=== PATIENT | male | born 1945 | race Caucasian/White ===

== ENCOUNTER 2017-09-19 11:28 | Day surgery (SDC) | payer OTHER ==
[~2017-09-19] VITALS: Ht 180.3 cm; Wt 69.7 kg
[~2017-09-19 11:28] MED LIST: ASPI81 PO; CART120C2; CART180C4 PO; EZET10 PO; OMEP20CA5 PO; PERC7.5T13 PO; RIVA15 PO
[2017-09-19 12:00] VITALS: BP 145/82; PULSE 34; RESP 16; TEMP 98.4; O2SAT 100
[2017-09-19] MEDS ORDERED: OMEP40CA2 PO (12:10)
[2017-09-19] MEDS ORDERED: ASPI-516 CHEW (12:10)
[2017-09-19] MEDS ORDERED: CARD180C5 PO (12:10)
[2017-09-19] MEDS ORDERED: FURO40TA PO (12:10)
[2017-09-19] MEDS ORDERED: OXYC1TAB35 (12:10)
[2017-09-19] MEDS ORDERED: DIGO0.25 PO (12:10)
[2017-09-19 12:30] LABS: AUTOMATED NEUTROPHIL # 4.5 TH/MM3 (1.8-7.7); BASOPHIL # 0.1 TH/MM3 (0-0.2); BASOPHIL % 0.9 % (0.0-2.0); EOSINOPHIL # 0.3 TH/MM3 (0-0.4); EOSINOPHIL % 3.8 % (0.0-4.0); HEMATOCRIT 44.2 % (39.0-51.0); HEMOGLOBIN 15.3 GM/DL (13.0-17.0); LYMPH % 29.9 % (9.0-44.0); LYMPHOCYTE # 2.5 TH/MM3 (1.0-4.8); MEAN CELL VOLUME 92.7 FL (80.0-100.0); MEAN CORPUSCULAR HEMOGLOBIN 32.1 PG (27.0-34.0); MEAN CORPUSCULAR HGB CONC 34.6 % (32.0-36.0); MEAN PLATELET VOLUME 8.3 FL (7.0-11.0); MONOCYTE # 0.9 TH/MM3 (0-0.9); NEUT % 54.4 % (16.0-70.0); PLATELET COUNT 219 TH/MM3 (150-450); RED BLOOD COUNT 4.77 MIL/MM3 (4.50-5.90); RED CELL DISTRIBUTION WIDTH 14.7 % (11.6-17.2); WHITE BLOOD COUNT 8.2 TH/MM3 (4.0-11.0)
[2017-09-19] MEDS ORDERED: ceFAZolin INJ 1,000 MG VIAL ONE (12:36)
[2017-09-19] MEDS ORDERED: LIDOCAINE HCL 2% 50 ML VIAL ONE (12:36)
[2017-09-19] MEDS ORDERED: VANCOMYCIN 500 MG VIAL ONE (12:36)
[2017-09-19] MEDS ORDERED: VANCOMYCIN HCL 1000 MG VIAL ONE (12:36)
[2017-09-19 12:39] LABS: PROTHROMBIN TIME - PATIENT 10.3 SEC (9.8-11.6)
[2017-09-19 12:58] LABS: BICARBONATE 30.6 MEQ/L (21.0-32.0); CALCIUM 9.1 MG/DL (8.5-10.1); CREATININE 1.26 MG/DL (0.60-1.30)
[2017-09-19] MEDS ORDERED: MIDAZOLAM HCL 2 MG/2 ML VIAL ONE (12:59)
[2017-09-19] MEDS ORDERED: LEVA500T33 PO (13:33)
[2017-09-19] MEDS ORDERED: ACETAMINOPHEN 325 MG TAB PO PRN (13:45)
--- NOTE | 2017-09-19 15:31 | CATHPROC ---
Patient Name: LUIS MANUEL BOLES Study #: [id number] Initial MD: Christophe Temple Date of : 1945 Study Date: 09/19/2017 Cardiac Catheterization Report 09/19/2017 3:31:38 PM Financial #: [id number] 1 of 9 Patient Name: LUIS MANUEL BOLES Study #: [id number] Initial MD: Christophe Temple Date of : 1945 Study Date: 09/19/2017 Entire Case Report Patient Information Patient Name LUIS MANUEL BOLES Date of 1945 Age 72 years Financial # [id number] Gender M AlternateID Lab Number 6 Room Number DC09 Height (in) 71.0 Height (cm) 180.3 BSA 1.89 Weight (lbs) 153.3 Weight (kg) 69.7 Patient Address/Phone Number Home Address [facility] Home Phone Number [address] [facility] [address] Study Information Study Number Admission Scheduled Start Study Start [id number] Sep 19 2017 11:28AM 09/19/2017 Sep 19 2017 12:27PM [place] [facility] Cardiac Pacer/ICD Admit Source Facility Department Other [facility] Machine Operator Physician and Clinical Staff Initial Christophe Vargas Construction Services Technician Fernando Corbin,RN Other Ifeoma Atkinson,PEREZ Recorder Brianne Wilkins,RT(R) TECH2 Scrub Regi De León,PORTAINER OPERATOR TECH2 X-Ray cathlab, cathlab 09/19/2017 3:31:38 PM Financial #: [id number] 2 of 9 Patient Name: LUIS MANUEL BOLES Study #: [id number] Initial MD: Christophe Temple Date of : 1945 Study Date: 09/19/2017 Equipment Time Semi Conductor Assembler Description Size Mfg Part Number Used/Scraped 13:19 BIOTRONIK PACEMAKER, ELUNA 8 DR-T DDDR [id number] Used [id number] 12:28 MEDLINE INDUSTRIES SUTURE, STRIP PLUS 1/2" * Used *[id number] 12:28 MEDLINE PACER ADHESIVE, MASTISOL 2/3CC 2/3CC 0523-48 Used 12:28 MEDLINE PACER PAIZ, LIMB * 2530 *[id number] Used [id number] 12:28 MEDLINE PACER PACK, PACER CUSTOM * Used *[id number] 12:28 MEDLINE PACER PEN, SKIN DUAL W/ RULER * Used *[id number] 12:59 Needle Sponge Count 2 22 Used 12:58 Needle Sponge Count 2 2 Used 12:59 Needle Sponge Count 25 1 Used [id number] *[id number] SUTURE, 3-0 VICRYL [SH] ([id number]) SUTURE, 3-0 VICRYL [SH] ([id number]) SUTURE, 4-0 MONOCRYL [PS2] (Y496G) [id number] 12:28 [employer],WARM AIR CCL * Used *[id number] [facility] PAD, ELECTROSURGICAL 12:28 * [id number] *[id number] Used SURGICAL GROUNDING ORANGE [id number] 13:17 VITATRON MEDTRONIC PLASMABLADE, PEAD 3.0S * Used *[id number] 12:28 [employer]. / * Used *50808 Equipment Model, Serial, Lot Number and Expiration Data Description Model Number Serial Number Lot Number Expiration Date PACEMAKER, ELUNA 8 DIANE [id number] 08-31-2018 Insurance Information Insurance Payor Private Health Insurance Third Alliance Party Third Alliance Party Number HUMANA GOLD PLUS O HUMCRHMO 09/19/2017 3:31:38 PM Financial #: [id number] 3 of 9 Patient Name: LUIS MANUEL BOLES Study #: [id number] Initial MD: Christophe Temple Date of : 1945 Study Date: 09/19/19 18 History: Allergies Allergy Reaction Sulfa (Sulfonamide Antibiotics) ARRYTHMIAS, FLUSHING niacin FLUSHING/SYNCOPE cephalexin simvastatin MYALGIA atorvastatin MYALGIA Ytvszkv-Jat-Fno Reductase Inhibitor sulfamethoxazole trimethoprim metoprolol clopidogrel History: Risk Factors Dyslipidemia Yes Medication Medication Total Dose (Bolus/Oral) Medication Total Dosage/Unit 2% XYLOCAINE 50 mL FENTANYL 50 mcg VERSED 2 mg Medications (Bolus/Oral) Medication Time Given Dosage/Unit Administered By Reason 2% XYLOCAINE 09/19/2017 1:17:40 PM 50 mL Christophe Temple 50 mL 2% XYLOCAINE given in lab by Christophe Temple in Left shoulder via Subcutaneous. VERSED 09/19/2017 1:18:20 PM 2 mg Fernando Corbin 2 mg VERSED given in lab by Fernando Corbin RN in Left Antecubital via Peripheral IV. Ordered by Christophe Temple. FENTANYL 09/19/2017 1:19:22 PM 50 mcg Fernando Corbin 50 mcg FENTANYL given in lab by Fernando Corbin RN in Left Antecubital via Peripheral IV. Ordered by Christophe Medrano. 09/19/2017 3:31:38 PM Financial #: [id number] 4 of 9 Patient Name: LUIS MANUEL BOLES Study #: [id number] Initial MD: Christophe Temple Date of : 1945 Study Date: 09/19/19 Medication (Drip) Medication Time Given Dosage/Unit Concentration/Unit Diluent (ml) Solution ANCEF 09/19/2017 1:01:00 PM 2 g 2 g ANCEF given in lab by Fernando Corbin RN in Right Antecubital via Peripheral IV. Ordered by Christophe Temple. IV Solutions 09/19/2017 12:40:06 PM 0 mL (IV) 500 NaCl .9 IV Solutions given pre op by cathjulia sprague in Right Antecubital via Peripheral IV. Pump/Drip Flow = 20 ml/hr using NaCl .9. Ordered by Christophe Temple. IV Solutions 09/19/2017 12:40:07 PM 0 mL (IV) 500 NaCl .9 IV Solutions given pre op by cathlab cathlab in Left Antecubital via Peripheral IV. Pump/Drip Flow = 20 ml/hr using NaCl .9. Ordered by Christophe Temple. VANCOMYCIN DRIP 09/19/2017 1:00:02 PM 1 g 1 g VANCOMYCIN DRIP given in lab by Fernando Corbin RN in Right Antecubital via Peripheral IV. Ordered by Christophe Temple. Initial Case Assessment Cardiovascular HR Rhythm NIBP Chest Pain 62 paced 123/88 0 Edema Present Skin color Skin None Normal Warm Dry Neurological State Oriented to time-place- Alert Moves all extremities person Respiration - General Respiration Rate SpO2 (%) (B/min) 18 99 Final Case Assessment Cardiovascular HR Rhythm NIBP Chest Pain 69 paced 111/61 0 Edema Present Skin color Skin None Normal Warm Dry Neurological State Oriented to time-place- Alert Moves all extremities person Respiration - General Respiration Rate SpO2 (%) (B/min) 18 99 09/19/2017 3:31:38 PM Financial #: [id number] 5 of 9 Patient Name: LUIS MANUEL BOLES Study #: [id number] Initial MD: Christophe Temple Date of : 1945 Study Date: 09/19/2017 Vitals Summary Pain Time HR NIBP SpO2 Resp Temp EtCO2 Apnea Mark Iyer Comment Level 12:42:52 61 125/58 10 0 2 12:52:07 63 122/60 99.0 10 0 2 12:57:06 60 128/62 99.0 10 0 2 13:02:11 42 135/56 98.0 10 0 2 13:07:12 117 105/65 98.0 10 0 2 13:12:05 64 105/59 98.0 16 10 0 2 13:17:06 62 108/61 97.0 15 10 0 2 13:22:03 111 102/66 98.0 10 0 2 13:27:06 68 111/61 98.0 10 0 2 13:32:10 101 120/56 98.0 16 10 0 2 13:37:50 70 133/65 98.0 15 10 0 2 13:42:16 71 122/60 99.0 Mark Score Summary Time Activity Resp Circ LOC Color Total Score 12:42:52 2 2 2 2 2 10 12:52:07 2 2 2 2 2 10 12:57:06 2 2 2 2 2 10 13:02:11 2 2 2 2 2 10 13:07:12 2 2 2 2 2 10 13:12:05 2 2 2 2 2 10 13:17:06 2 2 2 2 2 10 13:22:03 2 2 2 2 2 10 13:27:06 2 2 2 2 2 10 13:32:10 2 2 2 2 2 10 13:37:50 2 2 2 2 2 10 09/19/2017 3:31:38 PM Financial #: [id number] 6 of 9 Patient Name: LUIS MANUEL BOLES Study #: [id number] Initial MD: Christophe Temple Date of : 1945 Study Date: 09/19/2017 Mark Score Definition Table Activity - 0 Activity - 1 Activity - 2 No Movement to Command Weak Hand Grasp Lift Head, Good Hand Grasp Respiration - 0 Respiration - 1 Respiration - 2 Apneic or Obstructed Shallow Breath, Airway Adjunct Deep Breath, Cough Freely Circulation - 0 Circulation - 1 Circulation - 2 B/P > 50% Admission B/P B/P > 20-50% Admission B/P B/P Stable X3 Level of Consciousness - 0 Level of Consciousness - 1 Level of Consciousness - 2 Not Responding Arousable On Calling Awake and Aware Color - 0 Color- 1 Color - 2 Cyanotic Lips, Nailbed, Skin Pale, Dusky [place] Or Normal Chronological Log Time Study Chronological Log 12:30:45 Patient arrived via Bed. 12:39:50 Patient Name, D.O.B, / Armband Verified By R.N. 12:39:52 Pre-op and post- op instructions given; patient acknowledges understanding of instruction s. 12:39:53 Patient has been NPO for More than 6Hrs. 12:39:54 Skin Breakdown-none per patient 12:40:00 Patient Warmer Placed on the Table. 12:40:00 Disposable Defibrillator Pads Placed On Patient. 12:40:01 Victor Manuel Prominences Protected 12:40:04 A # 20 IV was noted in the Antecubital (right). Grade = 0 12:40:05 A # 20 IV was noted in the Antecubital (left). Grade = 0 IV Solutions given pre op by cathlab, cathlab in Right Antecubital via Peripheral IV. Pump/Dr ip Flow = 20 ml/hr using 12:40:06 NaCl .9. Ordered by Christophe Temple. IV Solutions given pre op by cathlab, cathlab in Left Antecubital via Peripheral IV. Pump/Dri p Flow = 20 ml/hr using 12:40:07 NaCl .9. Ordered by Christophe Temple. 12:40:08 History and physical on the chart or being dictated. 12:40:09 Table restraints applied according to hospital policy Assessment: Initial Case, HR=62 BPM, Rhythm=paced, CSPB=837/88 mmhg, Chest Pain=0, Edema=None , Color=Normal, Skin = Warm, Dry 12:40:11 Neurological: State=Alert, Ox3, CARCAMO Respiration: Resp=18 B/min, SpO2=99 % 12:40:21 Disposable Defibrillator Pads Placed On Patient. 12:40:22 Bovie ground pad applied to: right thigh 12:40:30 2% CHLORHEXIDINE GLUCONATE WASH AND NASAL SWIPE DONE PRIOR TO PROCEDURE. First Sponge And Instrument Count Done by ~STAFF~. 12:40:33 Hypo's: 2, Sponges: 25, Bovie/scratch: 2 Sutures: 4, Blades: 2, Instruments: 26, Syveck Patches: 0 09/19/2017 3:31:38 PM Financial #: [id number] Patient Name: LUIS MANUEL BOLES Study #: [id number] Initial MD: Christophe Temple Date of : 1945 Study Date: 09/19/2017 Vitals capture started with the following parameters, Patient=Adult, Interval=5 min, Initial Pr wnenen=461 mmHg, 12:41:29 Deflation Rate=5 mmHg, Cuff placed on Right Arm 12:42:52 HR=61 bpm, XYPL=188/58 mmhg, Pain=0, Mark=10, Iyer=2 12:47:27 Left Upper Chest Prepped Times Two. 12:48:34 Reference ECG taken 12:52:07 HR=63 bpm, ESZY=115/60 mmhg, SpO2=99 %, Pain=0, Mark=10, Iyer=2 12:57:06 HR=60 bpm, RFHB=726/62 mmhg, SpO2=99 %, Pain=0, Mark=10, Iyer=2 First Sponge And Instrument Count Done by Christophe Temple. 12:57:37 Hypo's: 2, Sponges: 25, Bovie/scratch: 2 Sutures: 4, Blades: 2, Instruments: 26, Syveck Patches: 0 1 g VANCOMYCIN DRIP given in lab by Fernando Corbin, RN in Right Antecubital via Peripheral IV. O rdered by Windy, 13:00:02 Christophe. 13:01:00 2 g ANCEF given in lab by Fernando Corbin, RN in Right Antecubital via Peripheral IV. Ordered by Christophe Temple. 13:02:11 HR=42 bpm, IOCI=755/56 mmhg, SpO2=98.0 %, Pain=0, Mark=10, Iyer=2 13:07:12 YW=770 bpm, SIWR=053/65 mmhg, SpO2=98.0 %, Pain=0, Mark=10, Iyer=2 13:12:05 HR=64 bpm, BJRT=065/59 mmhg, SpO2=98.0 %, Resp=16 B/min, Pain=0, Mark=10, Iyer=2 13:13:18 MD arrived. 13:17:06 HR=62 bpm, PDYS=449/61 mmhg, SpO2=97.0 %, Resp=15 B/min, Pain=0, Mark=10, Iyer=2 Time Out. Correct patient, procedure, procedure equipment, site and side verified with physicia n present. Time 13:17:21 concurred by MD, individual staff and WOOD ENGRAVER. Time Out #2 - Consents verified, patient in correct position, all results are labled and displa yed, safety precautions 13:17:24 taken, antibiotics administered. Time out concurred by , individual staff in procedure 13:17:37 Case Start 13:17:40 50 mL 2% XYLOCAINE given in lab by Christophe Temple in Left shoulder via Subcutaneous. 13:18:20 2 mg VERSED given in lab by Fernando Corbin RN in Left Antecubital via Peripheral IV. Ordere d by Christophe Temple. 13:19:22 50 mcg FENTANYL given in lab by Fernando Corbin RN in Left Antecubital via Peripheral IV. Or dered by Christophe Temple. 13:22:03 LD=087 bpm, JGII=935/66 mmhg, SpO2=98.0 %, Pain=0, Mark=10, Iyer=2 13:22:06 Surgical Incision Made. 13:23:30 A device was explanted. 13:24:12 Pocket flushed with antibiotic solution 13:24:59 A PACEMAKER, ELUNA 8 DR-T DDDR was connected and placed in the pocket. Second Sponge And Instrument Count Done by Christophe Temple. 13:25:04 Hypo's: 2, Sponges: 25, Bovie/scratch: 2 Sutures: ~SUTURE~, Blades: 2, Instruments: ~INSTRU~, Syveck Patches: ~SYVECK PATCH~ 13:25:13 The pocket was closed. 13:27:06 HR=68 bpm, BPVI=482/61 mmhg, SpO2=98.0 %, Pain=0, Mark=10, Iyer=2 13:27:48 Case End The Final Sponge And Instrument Count Done by Christophe Temple. 13:27:49 Hypo's: 2, Sponges: 25, Bovie/scratch: 2 Sutures: 4, Blades: 2, Instruments: 26, Syveck Patches: ~SYVECK PATCH~ 13:27:58 Steri-strips and a sterile dressing applied to site. Assessment: Final Case, HR=69 BPM, Rhythm=paced, HFZH=461/61 mmhg, Chest Pain=0, Edema=None, Color=Normal, Skin = Warm, Dry 13:28:40 Neurological: State=Alert, Ox3, CARCAMO Respiration: Resp=18 B/min, SpO2=99 % 09/19/2017 3:31:38 PM Financial #: [id number] 8 of 9 Patient Name: LUIS MANUEL BOLES Study #: [id number] Initial MD: Christophe Temple Date of : 1945 Study Date: 09/19/2017 13:28:56 Catheter(s) removed without difficulty 13:29:00 No case complications noted. 13:29:01 Cine recording checked. 13:29:03 Bedside Report will be given. 13:29:03 Implantable Device card placed in patient's chart. 13:29:06 Contrast Scanned 13:29:07 Verbal Stimulation=2 Physical Stimulation=2 Airway=2 Respiration=2 TOTAL=8. (0=absent, 1=l imited, 2=present) 13:29:25 Implant Procedure was performed. SC PM INSERT. 13:31:01 A PPM Implant . (Dual) GEN CHANGE. 13:32:10 WI=684 bpm, DGUT=737/56 mmhg, SpO2=98.0 %, Resp=16 B/min, Pain=0, Mark=10, Iyer=2 13:37:50 HR=70 bpm, HORZ=829/65 mmhg, SpO2=98.0 %, Resp=15 B/min, Pain=0, Mark=10, Iyer=2 13:42:16 HR=71 bpm, XDAV=772/60 mmhg, SpO2=99.0 % End Study - Contrast Media Used In Study Contrast Total Opened (mL) Total Used (mL) Total Wasted (mL) Unspecified 0 0 0 End Study - Radiation Exposure Fluoro Time (minutes) 0.0 End Study - Patient Disposition Complications Transferred To No Telemetry Bed 09/19/2017 3:31:38 PM Financial #: [id number]
--- NOTE | 2017-09-19 15:44 | MH ---
cc: OLIVER CORTEZ M.D. DATE OF ADMISSION: 09/19/2017 DATE OF : 1945 HISTORY OF PRESENT ILLNESS The patient is a 72-year-old white male with a history of paroxysmal atrial fibrillation, paroxysmal atrial flutter, coronary artery disease, pacemaker implant 2008, seizure disorder who is now admitted for pacemaker generator replacement. His pacemaker battery was found to be nearing end-of-life on a routine check. Clinically he has been doing well denying chest pain, shortness of breath, dizziness, syncope, near-syncope, palpitations. PAST MEDICAL HISTORY 1. Paroxysmal atrial fibrillation diagnosed 2003. 2. Paroxysmal atrial flutter diagnosed approximately October 2015. 3. Bladder cancer. 4. Coronary artery disease status post bypass surgery and mitral valve repair 2003. His last heart catheterization was 07/19/09 showing mild left main disease, mild LAD and left circumflex disease, left dominant system, small right coronary with 95% mid stenosis, patent left internal mammary artery to the LAD and patent vein graft to the obtuse marginal with no other bypass grafts found. 5. Hyperlipidemia. 6. Biotronik pacemaker implant 2008. 7. Paroxysmal atrial tachycardia. 8. Seizure disorder. CARDIAC MEDICATIONS: 1. His cardiac medications, aspirin 81 mg daily 2. Cardizem CD 180 mg daily 3. Digoxin 0.25 mg daily. 4. Furosemide 40 mg daily. ALLERGIES METOPROLOL TARTRATE NIACIN PLAVIX STATINS SULFA FAMILY HISTORY Noncontributory. SOCIAL HISTORY The patient continues to smoke cigarettes. He denies alcohol abuse. REVIEW OF SYSTEMS Review of systems as in the history of present illness otherwise negative or noncontributory. PHYSICAL EXAMINATION: VITAL SIGNS: On exam his blood pressure 116/62 with a pulse of 70, respirations 15. IN GENERAL: He is a well-developed, well-nourished white male in no acute distress . HEAD, EYES, EARS, NOSE, AND THROAT: Jugular venous pressure is normal. Carotid pulses are 2+ bilaterally and without bruits. CHEST: Examination of the chest reveals clear lung webster CARDIAC: On cardiac examination he has a regular rhythm and rate without S3-S4 or murmur. ABDOMEN: On abdominal examination he has a soft, nontender abdomen. Bowel sounds are present. There is no definite hepatosplenomegaly. EXTREMITIES: Examination of the extremities reveals no clubbing, cyanosis or edema. IMPRESSION Pacemaker battery nearing end-of-life in this 72-year-old white male with a history of paroxysmal atrial arrhythmias, coronary artery disease, seizure disorder, pacemaker implant 2008. The patient has been recommended pacemaker generator replacement. The nature of this procedure and potential risks have been outlined. He agrees to proceed. PLAN Pacemaker generator replacement on 09/19/2017 MD NAVIN Sharp/priscila /1:13 PM /3:34 PM MTDSalena
--- NOTE | 2017-09-19 16:00 | MH ---
cc: OLIVER CORTEZ M.D. DATE OF ADMISSION 09/19/2017 DATE OF 1945 HISTORY OF PRESENT ILLNESS The patient is a 72-year-old white male with a history of paroxysmal atrial fibrillation, paroxysmal atrial flutter, coronary artery disease, pacemaker implantation 2008, seizure disorder, who is now admitted for permanent pacemaker generator replacement. His pacemaker battery was found to be nearing end-of-life on a routine check. The patient clinically has been doing well, basically asymptomatic. He denies chest pain, shortness of breath, dizziness, palpitations, pedal edema, paroxysmal nocturnal dyspnea. PAST MEDICAL HISTORY 1. Paroxysmal atrial fibrillation diagnosed approximately 2003 right after his bypass surgery. He had recurrent atrial fibrillation September 2015 based on a pacemaker check and again on a preoperative EKG January 2016. 2. Paroxysmal atrial flutter. 3. History of bladder cancer. 4. Coronary artery disease status post bypass surgery and mitral valve repair 2003. His last heart catheterization was 07/19/09 showing mild left main disease, mild LAD and left circumflex disease, left dominant system, small right coronary artery with 95% mid stenosis, patent left internal mammary artery to the LAD and patent vein graft to the obtuse marginal, ejection fraction 55%. 5. Hyperlipidemia. 6. Pacemaker implant 05/09/2009. 7. Seizure disorder. PAST SURGICAL HISTORY 1. Coronary artery bypass grafting 2003. 2. Permanent pacemaker implantation 2008. MEDICATIONS Cardiac medications: 1. Aspirin 81 mg q. day. 2. Cardizem CD 180 mg q. day. 3. Digoxin 0.25 mg q. day. 4. Furosemide 40 mg q. day. ALLERGIES 1. METOPROLOL TARTRATE. 2. PLAVIX. 3. NIACIN. 4. STATINS. 5. SULFA. FAMILY HISTORY Noncontributory. SOCIAL HISTORY The patient continues to smoke about two packs of cigarettes per day. He denies alcohol abuse. REVIEW OF SYSTEMS As in the history of present illness, otherwise negative or noncontributory. PHYSICAL EXAMINATION VITAL SIGNS: Blood pressure 116/62 with a pulse of 70, respirations 15. GENERAL: In general he is a well-developed, well-nourished white male in no acute distress. HEENT/NECK: Jugular venous pressure is normal. Carotid pulses are 2+ bilaterally and without bruits. CHEST: Examination of the chest reveals clear lung webster. CARDIAC: On cardiac examination he has a regular rate and rhythm without S3, S4, or murmur. ABDOMEN: On abdominal examination he has a soft, nontender abdomen. Bowel sounds are present. There is no definite hepatosplenomegaly. EXTREMITIES: Examination of the extremities reveals no clubbing, cyanosis or edema. IMPRESSION Pacemaker battery nearing end-of-life in this 72-year-old white male with a history of pacemaker implant 2008, history of coronary artery disease, hyperlipidemia, paroxysmal atrial flutter and paroxysmal atrial fibrillation. The patient has been recommendations pacemaker generator replacement. The nature of this procedure and potential risks have been outlines. He agrees to proceed. PLAN Pacemaker generator replacement on 09/19/2017. MD NAVIN Sharp/JUAN /8:41 AM /3:42 PM ALLEN
--- NOTE | 2017-09-20 14:23 | EKG ---
Date Performed: 09/19/2017 Time Performed: 12:15:50 PTAGE: 72 years EKG: Likely paced rhythm with bigeminal PVCs with underlying atrial fibrillation. Compared to pr evious tracing, the above rhythm has replaced atrial flutter. Abnormal ECG PREVIOUS TRACING : 03/07/2016 12.18 DOCTOR: Bacilio Silveira Interpretating Date/Time 09/20/2017 14:22:11
--- NOTE | 2017-09-20 20:20 | MP ---
cc: RUSH CORTEZ DATE OF SURGERY 09/19/17 PROCEDURE Pacemaker generator replacement. OPERATIVE NOTE The patient was brought to the operating suite in a fasting state after having signed informed consent. The left upper chest was prepped and draped as per policy and anesthetized with 1% lidocaine. A transverse incision was made over the preexisting generator using a plasma blade and, using blunt dissection, the generator was freed from the subcutaneous pocket. The atrial and ventricular leads were disconnected and then reconnected to the new generator which is a Biotronik Eluna device. The leads and the generator were placed back into the subcutaneous pocket which was closed using 3-0 Vicryl interrupted stitches in two layers to close the subcutaneous tissue and then 4-0 Monocryl running stitch to close the subcuticular tissue. Overlapping Steri-Strips and a pressure dressing were applied. There were no apparent immediate complications. Atrial and ventricular lead pacing parameters were found to be very good. CONCLUSION Successful pacemaker generator replacement using a Biotronik Eluna pacemaker generator. MD NAVIN Sharp/ /1:32 PM /8:12 PM ALLEN
== END 2017-09-19 16:52 | disposition home or self-care (01) ==
LOC: HDIC 11:28 → HCAT 11:28
PROVIDERS: ATTEND Internal Medicine Cardiovascular Disease
DX: Z45.010 Encounter for checking and testing of cardiac pacemaker pulse generator [battery] (principal); I48.0 Paroxysmal atrial fibrillation; I48.92 Unspecified atrial flutter; I47.1 Supraventricular tachycardia; E78.5 Hyperlipidemia, unspecified; G40.909 Epilepsy, unspecified, not intractable, without status epilepticus; I25.10 Atherosclerotic heart disease of native coronary artery without angina pectoris; F17.210 Nicotine dependence, cigarettes, uncomplicated; Z85.51 Personal history of malignant neoplasm of bladder
CPT/HCPCS: 33228; 80048; 85025; 85610; 85730; 93005; 99152; 99153; C1785; J0690; J2250; J3010; J3370